=== PATIENT | male | born 1980 | race Caucasian/White ===

== ENCOUNTER 2019-11-02 13:39 | Emergency (ER) | payer OTHER ==
[~2019-11-02] VITALS: Ht 175.3 cm; Wt 95.3 kg
[2019-11-02] MEDS ORDERED: DIOVAN160 M1 PO (13:50)
== END 2019-11-02 14:15 | disposition home or self-care (01) ==
LOC: ER 13:39
DX: I16.1 Hypertensive emergency (principal); I10 Essential (primary) hypertension

== ENCOUNTER 2019-11-24 07:32 | Outpatient (CLI) | payer OTHER ==
[~2019-11-24 07:32] MED LIST: DIOVAN160 M1 PO
== END 2019-11-24 07:37 | disposition home or self-care (01) ==
LOC: LAB 07:32
PROVIDERS: ATTEND Internal Medicine Cardiovascular Disease
DX: I11.9 Hypertensive heart disease without heart failure (principal); E78.00 Pure hypercholesterolemia, unspecified

== ENCOUNTER 2019-12-11 10:00 | Outpatient (CLI) | payer OTHER | END 2019-12-11 15:00 | disposition home or self-care (01) | LOC: PPH VACUNA 10:00 | DX: Z23 Encounter for immunization (principal) ==

== ENCOUNTER 2020-08-23 08:38 | Emergency (ER) | payer OTHER ==
[~2020-08-23] VITALS: Ht 175.3 cm; Wt 92.1 kg
[2020-08-23] MEDS ORDERED: COZAAR50 MG (08:43)
[2020-08-23] MEDS ORDERED: DICLOFENAC POTA50 MG PO (10:44)
[2020-08-23] MEDS ORDERED: ORPHENADRINE C100 MG PO (10:44)
== END 2020-08-23 10:48 | disposition home or self-care (01) ==
LOC: ER 08:38
DX: S93.492A Sprain of other ligament of left ankle, initial encounter (principal); X50.0XXA Overexertion from strenuous movement or load, initial encounter; Y93.67 Activity, basketball; Y92.89 Other specified places as the place of occurrence of the external cause; Y99.8 Other external cause status

== ENCOUNTER 2020-08-23 11:14 | Outpatient (CLI) | payer OTHER ==
[~2020-08-23 11:14] MED LIST changes: +COZAAR50 MG; +DICLOFENAC POTA50 MG PO; +ORPHENADRINE C100 MG PO
== END 2020-08-24 11:18 | disposition home or self-care (01) ==
LOC: MRI 11:14
PROVIDERS: ATTEND Orthopaedic Surgery
DX: S93.492A Sprain of other ligament of left ankle, initial encounter (principal)
CPT/HCPCS: 73718; 73721